=== PATIENT | male | born 1960 | race Two or more races ===

== ENCOUNTER → 2016-12-19 | Outpatient (CLI) | payer OTHER ==
--- NOTE | 2016-12-19 08:37 | REP ---
MRI left knee without contrast: History: Chronic pain. No comparison radiographs available. Technique: Sagittal, axial and coronal imaging planes are utilized. T1, proton density and T2-weighted scans were obtained in the usual fashion with and without fat saturation. MRI findings: There is a moderate sized joint effusion. A tiny Torrez's cyst is seen and there is edema adjacent to the distal extent of the Torrez's cyst mild in degree. Patellar and quadriceps tendons are intact. Anterior and posterior cruciate ligaments are normal in appearance. There is no evidence of medial or lateral collateral ligament disruption. There is mild to moderate focal patellar chondromalacia with a partial thickness articular cartilage defect 3 mm in diameter in the medial central patellar facet. There is some fissuring in the trochlear articular cartilage as well. No other articular cartilaginous lesion is seen. No medial or lateral meniscal cyst is appreciated. There is some central increased signal intensity in the posterior horn of the medial meniscus but this does not extend to an articular cartilage and is not expected to correlate with a tear. Impression: 1. Moderate joint effusion. 2. Small Torrez's cyst. 3. Moderate focal chondromalacia patella. Signed by Shamar Salvador MD 12/19/2016 12:07 P
== END ==
LOC: M RAD 07:11
PROVIDERS: ATTEND Thoracic Surgery (Cardiothoracic Vascular Surgery)
DX: M25.562 Pain in left knee (principal)